=== PATIENT | male | born 1955 | race Caucasian/White ===

== ENCOUNTER → 2016-07-15 | Outpatient (CLI) | payer OTHER ==
[~2016-07-15] MED LIST: ASPIR 8181 MG PO; COLCHICINE0.6 MG PO; COREG6.25 MG PO; LISINOPRIL20 MG PO; NORVASC 5 MG TAB5 MG PO; ZYLOPRIM 100 M100 MG PO
[2016-07-15 12:00] LABS: HEMOGLOBIN 15.3 gm/dl (14.0-17.5); RED BLOOD COUNT 5.17 M/UL (4.20-5.50)
[2016-07-15 12:15] LABS: BUN/CREATININE RATIO 22 (0-10)
== END ==
LOC: US 11:00
PROVIDERS: Internal Medicine Nephrology
DX: N18.3 Chronic kidney disease, stage 3 (moderate) (principal); N28.1 Cyst of kidney, acquired
CPT/HCPCS: 36415; 80048; 81001; 82043; 82570; 84156; 84550; 85027